=== PATIENT | female | born 1945 ===

== ENCOUNTER 2022-09-14 18:13 | Outpatient (REF) | payer OTHER, SELFPAY ==
[2022-09-14 19:11] LABS: Influenza A PCR NEGATIVE (Negative); Influenza B PCR NEGATIVE (Negative); Resp Syncy Virus RNA Qual PCR NEGATIVE (Negative); SARS COV2 PCR INHOUSE NEGATIVE (Negative)
== END 2022-09-14 18:14 | disposition home or self-care (01) ==
LOC: HO.LNP 18:13
PROVIDERS: Visit Provider Internal Medicine
DX: R43.9 Unspecified disturbances of smell and taste (principal); Z20.822 Contact with and (suspected) exposure to COVID-19
CPT/HCPCS: 0241U